=== PATIENT | female | born 1970 | race Caucasian/White ===

== ENCOUNTER 2017-10-10 06:03 | Day surgery (SDC) | payer OTHER ==
[~2017-10-10] VITALS: Ht 172.7 cm; Wt 68.0 kg
[2017-10-10] MEDS ORDERED: MORPHINE SULFATE 4 MG/ML SYR IM/IVP PRN (07:35)
[2017-10-10] MEDS ORDERED: IBUPROFEN 800 MG TAB PO PRN (07:35)
[2017-10-10] MEDS ORDERED: ACETAMINOPHEN/CODEINE 300/30MG 1 TAB PO PRN (07:35)
[2017-10-10] MEDS ORDERED: ONDANSETRON 4 MG/2 ML VIAL IVP PRN ×2 (07:35→08:50)
[2017-10-10] MEDS ORDERED: PROPOFOL 200 MG/20 ML VIAL IV ONE (08:30)
[2017-10-10] MEDS ORDERED: fentaNYL 0.05 MG/ML VIAL ONE (08:34)
[2017-10-10] MEDS ORDERED: MIDAZOLAM 2 MG/2 ML VIAL ONE (08:34)
[2017-10-10] MEDS ORDERED: MEPERIDINE 25 MG/ML SYR ONE (08:35)
[2017-10-10] MEDS ORDERED: LACTATED RINGERS 1,000 ML IV SCH (08:49)
[2017-10-10] MEDS ORDERED: diphenhydrAMINE 50 MG/ML VIAL IVP PRN (08:50)
[2017-10-10] MEDS ORDERED: MEPERIDINE 25 MG/ML SYR IVP PRN (08:50)
== END 2017-10-10 10:45 | disposition home or self-care (01) ==
LOC: MDS 06:03 → MMU 06:07 → MDS 10:45
PROVIDERS: ATTEND Obstetrics & Gynecology
DX: N92.1 Excessive and frequent menstruation with irregular cycle (principal); D64.9 Anemia, unspecified; Z98.890 Other specified postprocedural states; Z79.899 Other long term (current) drug therapy
CPT/HCPCS: 36415; 58120; 71045; 86886; 86900; 86901; J2175; J2250; J2704; J3010; J7120; Q0092; 88305

== ENCOUNTER 2023-01-17 06:37 | Day surgery (SDC) | payer OTHER ==
[~2023-01-17] VITALS: Ht 172.7 cm; Wt 68.0 kg
[2023-01-17] MEDS ORDERED: diphenhydrAMINE 50 MG/ML VIAL ONE (07:14)
[2023-01-17] MEDS ORDERED: MIDAZOLAM 5 MG/5 ML VIAL ONE (07:15)
[2023-01-17] MEDS ORDERED: LIDOCAINE 2% 100 MG/5 ML UJET TP ONE (07:15)
[2023-01-17] MEDS ORDERED: fentaNYL citrate 0.05 MG/ML VIAL ONE (07:15)
[2023-01-17] MEDS ORDERED: fentaNYL citrate 0.05 MG/ML VIAL IVP ONE (08:25)
[2023-01-17] MEDS ORDERED: MIDAZOLAM 5 MG/5 ML VIAL IV ONE (08:25)
== END 2023-01-17 08:48 | disposition home or self-care (01) ==
LOC: MOR 06:37 → MMU 06:37 → MOR 08:48
PROVIDERS: ATTEND Internal Medicine Gastroenterology
DX: K59.00 Constipation, unspecified (principal); R10.84 Generalized abdominal pain
CPT/HCPCS: 45378; J2250; J3010; J1200